=== PATIENT | female | born 1990 | race Caucasian/White ===

== ENCOUNTER 2017-04-11 09:36 | Outpatient (CLI) | payer OTHER ==
--- NOTE | 2017-04-11 11:33 | Non Stress Test Report ---
Non Stress Test Datetime Report Generated by CPN: 04/11/2017 11:32 DEMOGRAPHIC EGA NST: 36.4 INDICATION Indication for Study: Ordered by Provider MONITORING Monitor Explained: Monitor Explained; Test Explained; Patient Verbalized Understanding Time on Monitor: 04/11/2017 09:48 Time off Monitor: 04/11/2017 11:24 Time off Monitor: 04/11/2017 11:24 NST Duration: 96 NST INTERVENTIONS NST Interventions: PO Hydration Physician Notified NST: Dr. Aguila BABY A: [id number] BABY A Movement : Present Contraction Frequency : denies FHR Baseline : 155 Accelerations : 15X15 Decelerations : None Variability : Moderate 6-25bpm NST Review: Meets Criteria for Reactive NST NST Review: Meets Criteria for Reactive NST NST Review and Verified By : Keaton Byrnes [facility] NST Results: Reactive NST Results: Reactive NST REPORT Report Trigger: Send Report
== END 2017-04-11 11:30 | disposition home or self-care (01) ==
LOC: LC 09:36
PROVIDERS: ATTEND Student in an Organized Health Care Education/Training Program
PROC: 4A1HXCZ Monitoring of Products of Conception, Cardiac Rate, External Approach (ICD-10-PCS; principal; 2017-04-11)
DX: Z34.93 Encounter for supervision of normal pregnancy, unspecified, third trimester (principal); Z36 Encounter for antenatal screening of mother; Z3A.36 36 weeks gestation of pregnancy
CPT/HCPCS: 59025

== ENCOUNTER 2017-04-28 17:10 | Inpatient (IN) | payer OTHER ==
[2017-04-28] MEDS ORDERED: DINOPROSTONE 10 MG VAGINAL INSERT.SR PV PRN (17:19)
[2017-04-28] MEDS ORDERED: RINGERS SOLUTION,LACTATED 300 ML IV ONE (17:19)
[2017-04-28] MEDS ORDERED: RINGERS SOLUTION,LACTATED 1,000 ML IV PRN (17:19)
[2017-04-28] MEDS ORDERED: OXYTOCIN/NORMAL SALINE 1,000 ML IV PRN (17:19)
[2017-04-28 17:56] LABS: APPEARANCE,URINE CLOUDY; BILIRUBIN,URINE NEGATIVE (NEGATIVE); GLUCOSE, URINE NEGATIVE (NEGATIVE); KETONES,URINE 80 mg/dL (NEGATIVE); LEUKOCYTE ESTERASE,URINE LARGE (NEGATIVE); NITRITE,URINE NEGATIVE (NEGATIVE); PROTEIN,URINE 100 mg/dL (NEGATIVE); URINE SPECIFIC GRAVITY 1.032; UROBILINOGEN,URINE NEGATIVE mg/dL (<2.0)
[2017-04-28 18:07] LABS: ABSOLUTE LYMPHOCYTES (AUTO) 3.1 10^3/uL (0.5-4.7); ABSOLUTE MONOCYTES (AUTO) 0.8 10^3/uL (0.1-1.4); BASOPHILS % (AUTO) 0.2 % (0-2); EOSINOPHILS % (AUTO) 0.3 % (0-6); HEMATOCRIT 38.5 % (36.0-47.0); HEMOGLOBIN 12.6 g/dL (12.0-15.5); HGB HCT DIFFERENCE -0.7; LYMPHOCYTES % (AUTO) 22.4 % (13-45); MEAN CORPUSCULAR HEMOGLOBIN 30.5 pg (27.0-33.4); MEAN CORPUSCULAR HGB CONC 32.8 g/dL (32.0-36.0); MEAN CORPUSCULAR VOLUME 93 fl (80-97); MONOCYTES % (AUTO) 5.7 % (3-13); RED BLOOD COUNT 4.14 10^6/uL (3.72-5.28); RED CELL DISTRIBUTION WIDTH 13.7 % (11.5-14.0); SEGMENTED NEUTROPHILS % (AUTO) 71.4 % (42-78)
[2017-04-28 18:13] LABS: URINE BARBITURATES SCREEN NEGATIVE; URINE METHADONE SCREEN NEGATIVE; URINE OPIATES LOW NEGATIVE; URINE PHENCYCLIDINE SCREEN NEGATIVE
[2017-04-28] MEDS ORDERED: ZOLPIDEM TARTRATE 5 MG TABLET PO ONE (19:47)
[2017-04-28] MEDS ORDERED: DINOPROSTONE 10 MG VAGINAL INSERT.SR ONE (19:59)
[2017-04-28 20:02] LABS: ALANINE AMINOTRANSFERASE 28 U/L (9-52); ALKALINE PHOSPHATASE 240 U/L (38-126); ANION GAP 11 (5-19); ASPARTATE AMINO TRANSFERASE 30 U/L (14-36); BILIRUBIN,DIRECT 0.3 mg/dL (0.0-0.4); BILIRUBIN,TOTAL 0.5 mg/dL (0.2-1.3); BLOOD UREA NITROGEN 8 mg/dL (7-20); CALCIUM 9.3 mg/dL (8.4-10.2); CARBON DIOXIDE 20 mmol/L (22-30); CHLORIDE 107 mmol/L (98-107); CREATININE RESULT 0.73 mg/dL (0.52-1.25); GLUCOSE 86 mg/dL (75-110); LDH 490 U/L (313-618); POTASSIUM 3.9 mmol/L (3.6-5.0); SODIUM 137.5 mmol/L (137-145); URIC ACID 5.5 mg/dL (2.5-6.2)
[2017-04-28] MEDS ORDERED: ZOLPIDEM TARTRATE 5 MG TABLET ONE (22:54)
[2017-04-29] MEDS ORDERED: PROMETHAZINE HCL INJ 25 MG/1 ML VIAL ONE (05:55)
[2017-04-29] MEDS ORDERED: NALBUPHINE HCL INJ 10 MG/1 ML AMPULE ONE (05:55)
[2017-04-29] MEDS ORDERED: OXYCODONE-ACETAMINOPHEN 5-325 MG TABLET PO ONE ×2 (05:56→20:07)
[2017-04-29] MEDS ORDERED: OXYCODONE-ACETAMINOPHEN 5-325 MG TABLET ONE ×2 (06:01→20:12)
[2017-04-29] MEDS ORDERED: MISOPROSTOL 0.2 MG TABLET ONE ×2 (07:53→21:20)
[2017-04-29] MEDS ORDERED: EPHEDRINE SULFATE INJ 50 MG/1 ML AMPULE ONE (07:53)
[2017-04-29] MEDS ORDERED: FENTANYL/BUPIVACAINE/NS/PF 200 MCG/100 ML RTUINJ EPI ONE (07:54)
[2017-04-29] MEDS ORDERED: OXYTOCIN/NORMAL SALINE 20 UNIT/1,000 ML RTUINJ ONE ×2 (07:54→21:24)
[2017-04-29] MEDS ORDERED: BUPIVACAINE HCL 0.25 % INJ/PF (2.5 MG/1 ML) 30 ML VIAL ONE (07:54)
[2017-04-29] MEDS ORDERED: LIDOCAINE 1% INJ-PF (10 MG/ML) 30 ML SDV ONE (07:54)
[2017-04-29] MEDS ORDERED: OXYTOCIN/NORMAL SALINE 1,000 ML IV PRN ×2 (15:06→20:03)
[2017-04-29] MEDS ORDERED: ACETAMINOPHEN 325 MG TABLET PO ONE (18:28)
[2017-04-29] MEDS ORDERED: ACETAMINOPHEN 325 MG TABLET ONE (18:29)
[2017-04-29] MEDS ORDERED: ACETAMINOPHEN WITH CODEINE #3 TABLET PO PRN ×2 (20:03)
[2017-04-29] MEDS ORDERED: ZOLPIDEM TARTRATE 5 MG TABLET PO PRN (20:03)
[2017-04-29] MEDS ORDERED: DIBUCAINE 1% OINTMENT 28 GM TP PRN (20:03)
[2017-04-29] MEDS ORDERED: DIPH/PERTUSS(ACELL)/TETANUS VAC/PF 0.5 ML SYR (>=10YO) IM PRN (20:03)
[2017-04-29] MEDS ORDERED: MEASLES,MUMPS&RUBELLA VACC/PF 0.5 ML VIAL SUBCUT PRN (20:03)
[2017-04-29] MEDS ORDERED: HYDROCODONE/ACETAMINOPHEN 5-325 MG TABLET PO PRN (20:03)
[2017-04-29] MEDS ORDERED: BENZOCAINE/MENTHOL AEROSOL SPRAY 56 ML TOP PRN (20:03)
--- NOTE | 2017-04-29 20:43 | Delivery Summary ---
Del Sum A-C Datetime Report Generated by CPN: 04/29/2017 20:42 DELIVERY PERSONNEL DELIVERY PERSONNEL: [id number] Delivery Doctor:: Rozina Casas MD Labor and Delivery Nurse:: Mariaelena Unger RNpressroom worker Nurse:: Ivanna Perkins RN Website Admin/MEDICAL RECORD CONSULTANT: Melanie Rojas, ST MATERNAL INFORMATION Delivery Anesthesia: Epidural Medications During Delivery: 0604 Percocet 2 tablets PO 0912 Celexa 20 mg PO Medications After Delivery: Pitocin Bolus-Please Comment; Pitocin Drip 20 Units/1000ml NSS Estimated Blood Loss (ml): 200 Maternal Complications: None LABOR SUMMARY EDC: 05/05/2017 00:00 No. Babies in Womb: 1 Attempted: No Labor Anesthesia: Epidural LABOR INFORMATION Reason for Induction: Gestational Hypertension; Maternal Diabetes Onset of Labor: 04/29/2017 03:59 Complete Dilatation: 04/29/2017 16:45 Cervical Ripening Agents: Cervidil Oxytocin: Augmentation Group B Beta Strep: negative Antibiotics # of Doses: 0 Steroids Given: None Reason Steroids Not Administered: Not Applicable MEMBRANES Membranes Rupture Method: Spontaneous Rupture of Membranes: 04/29/2017 03:47 Length of Rupture (hr): 15.70 Amniotic Fluid Color: Clear Amniotic Fluid Amount: Moderate Amniotic Fluid Odor: Normal STAGES OF LABOR Stage 1 hr: 12 Stage 1 min: 46 Stage 2 hr: 2 Stage 2 min: 44 Stage 3 hr: 0 Stage 3 min: 7 Total Time in Labor hr: 15 Total Time in Labor min: 37 VAGINAL DELIVERY Episiotomy: None Laceration Extension: Second Degree Laceration Type: Periurethral Laceration Repair: Yes Laceration Repair Note: 2-0 chromic repair of clitoral arana with interupted stitch x 2. repair of vaginal lac in normal fashion Sponge Count Correct: N/A Sharps Count Correct: Yes CSECTION DELIVERY Primary Indication: N/A Secondary Indication: N/A CSection Incidence: N/A Labor: N/A Elective: N/A CSection Incision: N/A BABY A INFORMATION Delivery Date/Time: 04/29/2017 19:29 Method of Delivery: Vaginal Born in Route : No : N/A Forceps: N/A Vacuum Extraction: N/A Shoulder Dystocia : No PRESENTATION/POSITION BABY A Presentation: Cephalic Cephalic Presentation: Vertex Breech Presentation: N/A PLACENTA INFORMATION BABY A Placenta Delivery Time : 04/29/2017 19:36 Placenta Method of Delivery: Spontaneous Placenta Status: Delivered SCORES BABY A Heart Rate 1 min: >100 bpm Resp Effort 1 min: Slow, Irregular Reflex Irritability 1 min: Cough or Sneeze or Pulls Away Muscle Tone 1 min: Active Motion Color 1 min: Body Ariton, Extremities Blue Resuscitation Effort 1 min: Tactile Stimulation SCORE 1 MIN: 8 Heart Rate 5 min: >100 bpm Resp Effort 5 min: Good Cry Reflex Irritability 5 min: Cough or Sneeze or Pulls Away Muscle Tone 5 min: Active Motion Color 5 min: Body Ariton, Extremities Blue SCORE 5 MIN: 9 INFANT INFORMATION BABY A Gestational Age at Delivery: 39.1 Gestational Status: Full Term- 39- 40.6 Weeks Outcome : Liveborn Condition : Stable Sex: Female IDENTIFICATION BABY A Verification Date/Time: 04/29/2017 19:37 ID Band Number: [id number] Mother's Name Verified: Yes RN Verifying : J, RN and S.Lattibeaudeir, RN WEIGHT/LENGTH BABY A Birthweight (gm): 3260 Weight (lb): 7 Infant Weight (oz): 3 Length (in): 19.00 Infant Length (cm): 48.26 CORD INFORMATION BABY A No. Cord Vessels: 3 Nuchal Cord : N/A Cord Blood Taken: Yes-For Eval (Mom's Blood Type - or O+) Infant Suction: Mouth; Nose ASSESSMENT BABY A Complications: Extended Tachycardia; Polyhydramnios Physical Findings at Delivery: Molding of the Head Respirations: Appears Normal Skin to Skin: No Cmm Operator/ALS Called : No Care By: Je Perkins RN _ Tosha Gregorio RN Transferred To: [facility] BABY B INFORMATION : N/A SIGNATURES Signature: with User ID: [email or web address]
--- NOTE | 2017-04-29 23:46 | Admission Physical ---
Datetime Report Generated by CPN: 04/29/2017 23:45 CURRENT ADMISSION Chief Complaint: Scheduled Induction of Labor Indication for Induction: Gestational HTN; Maternal Diabetes Admit Plan: Admit to Unit; Initiate Labor Induction Protocol ALLERGIES Medication Allergies: Yes Medication Allergies: Penicillins (04/11/2017) Medication Allergies: Penicillins (11/19/2015) Latex: No Latex Allergies OBSTETRICAL HISTORY EDC: 05/05/2017 00:00 : 2 Para: 0 Term: 0 : 0 SAB: 1 IAB: 0 Ectopic: 0 Livin Cesareans: 0 VBACs: 0 Multiple Births: 0 Gestational Diabetes: Yes Rh Sensitization: No Incompetent Cervix: No ROM: No Infertility: No ART Treatment: No Uterine Anomaly: No IUGR: No Hx Previous C/S: No Macrosomia: No Hx Loss/Stillborn: No PIH: Yes Hx : No Placenta Previa/Abruption: No Depression/PP Depression: Yes PTL/PROM: No Post Hemorrhage: No Current Procedures: Ultrasound; NST Obstetrical History Comments: G1-molar 11/20/2015 G2-current GDMA2 (on Glyburide) GHTN polyhyrdramnios conceived with IUI (Annotations: Data stored by N on behalf of user) SEE RECORDS Alcohol: No Marijuana : No Cocaine: No Other Illicit Drugs: No Cigarettes: Never Smoker. 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: No Heart Disease: No Hosp/Surgery: Yes Autoimmune Disorder: No Anesthetic Complications: No Kidney Disease: No Abnormal Pap Smear: Yes Neuro/Epilepsy: No Psychiatric Disorders: No Other Medical Diseases: No Hepatitis/Liver Disease: No Significant Family History: No Varicosities/Phlebitis: No Trauma/Violence : No Thyroid Dysfunction: No Medical History Comments: history of depression and anxiety-celexa 20mg QD started at 29 weeks, GDMA2-gliburide INFECTIOUS HISTORY Gonorrhea: No Genital Herpes: No Chlamydia: No Tuberculosis: No Syphilis: No Hepatitis: No HIV/AIDS Exposure: No Rash or Viral Illness: No HPV: Yes Infectious History Comments: HPV 2007 PHYSICAL EXAM General: Normal HEENT: Normal Neurologic: Normal Thyroid: Deferred Heart: Normal Lungs: Normal Breast: Deferred Back: Normal Abdomen: Normal Genitourinary Exam: Normal Extremities: Normal DTRs: Normal Pelvic Type: Adequate Vital Signs: Reviewed; Within Normal Limits VAGINAL EXAM Dilatation: 2 Effacement: 70 Station: -2 MEMBRANES Membranes: Intact FETUS A EGA: 39.1 Monitoring: External US FHR- Baseline: 140 Variability: Moderate 6-25bpm Accelerations: 15X15 Decelerations: None FHR Category: Category I PLANS FOR LABOR AND DELIVERY Labor and Delivery: None Pain Management: Epidural Feeding Preference: Formula Benefit of Breast Feed Discussed: Yes Circumcision: N/A INFORMED CONSENT Signature: with User ID: [email or web address]
[2017-04-30 07:55] LABS: HEMATOCRIT 29.2 % (36.0-47.0); HGB HCT DIFFERENCE -0.4; MEAN CORPUSCULAR HEMOGLOBIN 30.3 pg (27.0-33.4); MEAN CORPUSCULAR HGB CONC 32.8 g/dL (32.0-36.0); MEAN CORPUSCULAR VOLUME 92 fl (80-97); RED BLOOD COUNT 3.17 10^6/uL (3.72-5.28); RED CELL DISTRIBUTION WIDTH 13.4 % (11.5-14.0); WHITE BLOOD COUNT 22.8 10^3/uL (4.0-10.5)
[2017-04-30 07:56] LABS: HEMOGLOBIN 9.6 g/dL (12.0-15.5)
[2017-04-30] MEDS: IBUPROFEN 800 MG TABLET PO SCH ×3 (09:23→21:02)
--- NOTE | 2017-04-30 09:24 | PDOC PROGRESS REPORT ---
Subjective-OB Subjective: Post Delivery Day: 1 26 year old. Denies any needs at this time, states lochia is stable, pain well controlled, voiding without difficulty, bonding with baby well. Physical Exam (OB) Vital Signs: Temp Pulse Resp BP Pulse Ox 98.5 F 78 16 121/76 99 04/30/17 07:23 04/30/17 07:23 04/30/17 07:23 04/30/17 07:23 04/30/17 07:23 Intake & Output 04/29/17 04/30/17 05/01/17 06:59 06:59 06:59 Weight 90.75 kg - Lochia Lochia Amount: Scant < 10 ml Lochia Color: Rubra/Red - Abdomen Description: Tender, Soft Hernia Present: No Fundal Description: Firm, Midline Fundal Height: u/u - u/2 Objective-Diagnostic Laboratory: 04/30/17 06:52 04/28/17 17:45 04/30/17 06:52 WBC 22.8 H RBC 3.17 L Hgb 9.6 L D Hct 29.2 L MCV 92 MCH 30.3 MCHC 32.8 RDW 13.4 Plt Count 198 Assessment and Plan(PN) - Assessment and Plan (1) History of molar in first trimester, antepartum Is this a current diagnosis for this admission?: YesPlan: placenta to pathology (2) Vaginal delivery Is this a current diagnosis for this admission?: YesPlan: routine pp care (3) Acute blood loss anemia Is this a current diagnosis for this admission?: YesPlan: ferrous sulfate increase dietary iron - Time Spent with Patient Time with patient: Less than 15 minutes Critical Time spent with patient: Less than 15 minutes Medications reviewed and adjusted accordingly: Yes - Disposition Anticipated Discharge: Home Within: within 24 hours
[2017-04-30] MEDS: PRENATAL VITAMIN W-O CA NO5/FE FUMARATE/FA CAPSULE PO SCH (09:35)
[2017-04-30] MEDS: SENNOSIDES/DOCUSATE 8.6-50 MG 1 EACH TABLET PO SCH (09:35)
[2017-04-30] MEDS: DOCUSATE SODIUM 100 MG CAPSULE PO SCH ×2 (09:36→18:04)
[2017-04-30] MEDS: FERROUS SULFATE 325 MG TABLET PO SCH ×2 (09:36→18:04)
[2017-05-01] MEDS: IBUPROFEN 800 MG TABLET PO SCH (05:05)
[2017-05-01 06:58] LABS: ABSOLUTE EOSINOPHILS # (AUTO) 0.2 10^3/uL (0.0-0.6); ABSOLUTE LYMPHOCYTES (AUTO) 3.5 10^3/uL (0.5-4.7); ABSOLUTE NEUT (AUTO) 12.3 10^3/uL (1.7-8.2); BASOPHILS % (AUTO) 0.3 % (0-2); EOSINOPHILS % (AUTO) 1.2 % (0-6); HEMATOCRIT 29.1 % (36.0-47.0); HEMOGLOBIN 9.8 g/dL (12.0-15.5); HGB HCT DIFFERENCE 0.3; LYMPHOCYTES % (AUTO) 20.4 % (13-45); MEAN CORPUSCULAR HEMOGLOBIN 30.7 pg (27.0-33.4); MEAN CORPUSCULAR HGB CONC 33.7 g/dL (32.0-36.0); MEAN CORPUSCULAR VOLUME 91 fl (80-97); MONOCYTES % (AUTO) 5.7 % (3-13); RED BLOOD COUNT 3.19 10^6/uL (3.72-5.28); RED CELL DISTRIBUTION WIDTH 13.7 % (11.5-14.0); SEGMENTED NEUTROPHILS % (AUTO) 72.4 % (42-78)
--- NOTE | 2017-05-01 08:50 | PDOC DISCHARGE SUMMARY ---
Final Diagnosis Discharge Date: 05/01/17 - Final Diagnosis (1) History of molar in first trimester, antepartum Is this a current diagnosis for this admission?: Yes (2) Vaginal delivery Is this a current diagnosis for this admission?: Yes (3) Acute blood loss anemia Is this a current diagnosis for this admission?: Yes Discharge Data - Discharge Medication Home Medications: Citalopram Hydrobromide [Celexa] 1 tab PO DAILY 04/11/17 [id number]/Iron Fumarate/FA/Dss [ 19 Tablet] 1 tab PO DAILY 04/11/17 Docusate Sodium [Colace 100 mg Capsule] 100 mg PO BID #60 capsule 05/01/17 Ferrous Sulfate [Feosol 325 mg Tablet] 325 mg PO BID #60 tablet 05/01/17 Ibuprofen [Motrin 800 mg Tablet] 800 mg PO Q8 #60 tablet 05/01/17 Gestational Age: 39.1 Reason(s) for Admission: Induction of Labor, Gestional Diabetes Procedures: NST Intrapartum Procedure(s): Spontaneous Vaginal Delivery Complication(s): Laceration-Perineal Laceration-Degree: 2nd - [place] Data Baby 1 Female at 1 minute: 8 at 5 minutes: 9 Weight: 3260 kg Home with Mother: Yes Complications: No - Diagnosis Test Laboratory: Temp Pulse Resp BP Pulse Ox 98.0 F 81 16 124/79 97 04/30/17 19:45 04/30/17 19:45 04/30/17 19:45 04/30/17 19:45 04/30/17 19:45 04/28/17 04/28/17 04/30/17 17:27 17:45 06:52 RBC 4.14 3.17 L Hgb 12.6 9.6 L D Hct 38.5 29.2 L Urine Opiates Screen NEGATIVE 05/01/17 06:52 RBC 3.19 L Hgb 9.8 L Hct 29.1 L Urine Opiates Screen - Discharge information/Instructions Discharge Activity: Activity As Tolerated, Pelvic Rest, No tub bath Discharge Diet: Regular Disposition: HOME, SELF-CARE Follow up with: [facility] in: 4, Weeks
[2017-05-01 09:24] VITALS: BP 130/87
[2017-05-01] MEDS: FERROUS SULFATE 325 MG TABLET PO SCH (10:03)
[2017-05-01] MEDS: PRENATAL VITAMIN W-O CA NO5/FE FUMARATE/FA CAPSULE PO SCH (10:04)
[2017-05-01] MEDS: DOCUSATE SODIUM 100 MG CAPSULE PO SCH (10:04)
[2017-05-01] MEDS: SENNOSIDES/DOCUSATE 8.6-50 MG 1 EACH TABLET PO SCH (10:04)
== END 2017-05-01 12:20 | disposition home or self-care (01) | DRG 775 ==
LOC: LR 17:10 → 2S 04-29 23:11 → EDSTATUS 05-27 14:21
PROVIDERS: ADMIT Obstetrics & Gynecology; ATTEND Obstetrics & Gynecology
PROC: 4A1HXCZ Monitoring of Products of Conception, Cardiac Rate, External Approach (ICD-10-PCS; 2017-04-28)
PROC: 10E0XZZ Delivery of Products of Conception, External Approach (ICD-10-PCS; principal; 2017-04-29)
PROC: 0KQM0ZZ Repair Perineum Muscle, Open Approach (ICD-10-PCS; 2017-04-29)
PROC: 0UQMXZZ Repair Vulva, External Approach (ICD-10-PCS; 2017-04-29)
PROC: 3E0234Z Introduction of Serum, Toxoid and Vaccine into Muscle, Percutaneous Approach (ICD-10-PCS; 2017-05-01)
DX: O13.3 Gestational [pregnancy-induced] hypertension without significant proteinuria, third trimester (principal); D62 Acute posthemorrhagic anemia; O70.1 Second degree perineal laceration during delivery; O71.82 Other specified trauma to perineum and vulva; O99.02 Anemia complicating childbirth; O24.425 Gestational diabetes mellitus in childbirth, controlled by oral hypoglycemic drugs; O40.3XX0 Polyhydramnios, third trimester, not applicable or unspecified; O99.344 Other mental disorders complicating childbirth; F32.9 Major depressive disorder, single episode, unspecified; F41.9 Anxiety disorder, unspecified; Z37.0 Single live birth; Z23 Encounter for immunization; Z3A.39 39 weeks gestation of pregnancy; Z88.0 Allergy status to penicillin
CPT/HCPCS: 36415; 80053; 80307; 81005; 83615; 84550; 85025; 85027; 86592; 86850; 86900; 86901; 88307; 90707; 94760; J2300; J2550; J2590; J3490

== ENCOUNTER 2018-06-03 09:58 | Outpatient (CLI) | payer OTHER ==
--- NOTE | 2018-06-03 10:51 | Non Stress Test Report ---
Non Stress Test Datetime Report Generated by CPN: 06/03/2018 10:51 DEMOGRAPHIC EGA NST: 33.1 INDICATION Indication for Study: Other Indication for Study (NST) Other: repeat NST at office for tachycardia VITAL SIGNS Temperature - NST: 99.4 Pulse - NST: 133 RESP - NST: 14 NBPSYS NST: 111 NBPDIA NST: 68 MONITORING Monitor Explained: Monitor Explained; Test Explained; Patient Verbalized Understanding Time on Monitor: 06/03/2018 10:10 Time off Monitor: 06/03/2018 10:50 Time off Monitor: 06/03/2018 10:47 NST Duration: 40 NST INTERVENTIONS NST Interventions: PO Hydration; IV Fluids Physician Notified NST: Dr Augusto BABY A: [id number] BABY A Movement : Present Contraction Frequency : 0 FHR Baseline : 160 Accelerations : 15X15 Decelerations : None Variability : Moderate 6-25bpm NST Review: Meets Criteria for Reactive NST NST Review and Verified By : D Bellavance RN NST Results: Reactive NST REPORT Report Trigger: Send Report
[2018-06-03 13:24] LABS: APPEARANCE,URINE SLIGHTLY-CLOUDY; BILIRUBIN,URINE NEGATIVE (NEGATIVE); COLOR,URINE YELLOW; GLUCOSE, URINE 50 mg/dL (NEGATIVE); KETONES,URINE NEGATIVE (NEGATIVE); LEUKOCYTE ESTERASE,URINE LARGE (NEGATIVE); NITRITE,URINE NEGATIVE (NEGATIVE); PROTEIN,URINE NEGATIVE (NEGATIVE); UROBILINOGEN,URINE NEGATIVE mg/dL (<2.0)
--- NOTE | 2018-06-03 13:29 | RADIOLOGY REPORT (SQ) ---
EXAM DESCRIPTION: U/S PROFILE W/O STRESS COMPLETED DATE/TIME: 06/03/2018 12:52 pm REASON FOR STUDY: tachycardia in the office COMPARISON: None. TECHNIQUE: Limited ellis-scale realtime and static images of the fetus to measure specified parameter s. LIMITATIONS: None. FINDINGS: HEART RATE: 147 to 150 Beats per minute. SUDHEER: 12.4 cm. BREATHING MOVEMENT: 0 points. MOVEMENT: 2 points. POSTURE AND TONE: 2 points. QUALITATIVE SUDHEER: 2 points. OTHER: No other significant finding. IMPRESSION: BIOPHYSICAL PROFILE: 04/04. Trimester of : Third - 28 weeks to delivery COMMENT: BREATHING MOVEMENTS: 2 POINTS: PRESENT 0 POINTS: ABSENT MOTION: 2 POINTS: PRESENT 0 POINTS: ABSENT TONE: 2 POINTS: PRESENT 0 POINTS: ABSENT AMNIOTIC FLUID VOLUME: 2 POINTS: LARGEST POCKET GREATER THAN 2 CM DEPTH. 0 POINTS: NO POCKET OF 2 CM. TECHNICAL DOCUMENTATION: JOB ID: [id number] [employer]- All Rights Reserved Reading location - IP/workstation name: [email or web address]
[2018-06-03 13:50] LABS: URINE AMPHETAMINES SCREEN NEGATIVE; URINE BARBITURATES SCREEN NEGATIVE; URINE BENZODIAZEPINES SCREEN NEGATIVE; URINE COCAINE SCREEN NEGATIVE; URINE MARIJUANA (THC) SCREEN NEGATIVE; URINE METHADONE SCREEN NEGATIVE; URINE PHENCYCLIDINE SCREEN NEGATIVE
== END 2018-06-03 13:26 | disposition home or self-care (01) ==
LOC: LC 09:58
PROVIDERS: ATTEND Obstetrics & Gynecology
PROC: 4A1HXCZ Monitoring of Products of Conception, Cardiac Rate, External Approach (ICD-10-PCS; principal; 2018-06-03)
DX: O36.8330 Maternal care for abnormalities of the fetal heart rate or rhythm, third trimester, not applicable or unspecified (principal); Z3A.33 33 weeks gestation of pregnancy
CPT/HCPCS: 76819; 80307; 81001

== ENCOUNTER 2018-06-11 10:41 | Outpatient (CLI) | payer OTHER ==
--- NOTE | 2018-06-11 13:06 | Non Stress Test Report ---
Non Stress Test Datetime Report Generated by CPN: 06/11/2018 13:06 DEMOGRAPHIC EGA NST: 34.2 INDICATION Indication for Study: Ordered by Provider; Other Indication for Study (NST) Other: Repeat NST MONITORING Monitor Explained: Monitor Explained; Test Explained; Patient Verbalized Understanding Time on Monitor: 06/11/2018 11:34 Time off Monitor: 06/11/2018 12:15 NST Duration: 41 NST INTERVENTIONS NST Interventions: PO Hydration; Reposition Patient Physician Notified NST: Margot Peck, CNM BABY A: [id number] BABY A Movement : Present Contraction Frequency : none FHR Baseline : 145 Accelerations : 15X15 Decelerations : None Variability : Moderate 6-25bpm NST Review: Meets Criteria for Reactive NST NST Review and Verified By : TARIQ Ochoa Results: Reactive NST REPORT Report Trigger: Send Report
== END 2018-06-11 12:21 | disposition home or self-care (01) ==
LOC: LC 10:41
PROVIDERS: ATTEND Obstetrics & Gynecology
PROC: 4A1HXCZ Monitoring of Products of Conception, Cardiac Rate, External Approach (ICD-10-PCS; principal; 2018-06-11)
DX: Z34.93 Encounter for supervision of normal pregnancy, unspecified, third trimester (principal)
CPT/HCPCS: 59025

== ENCOUNTER 2018-06-25 15:34 | Outpatient (CLI) | payer OTHER | END 2018-06-25 17:05 | disposition home or self-care (01) | LOC: LC 15:34 | PROVIDERS: ATTEND Obstetrics & Gynecology | PROC: 4A1HXCZ Monitoring of Products of Conception, Cardiac Rate, External Approach (ICD-10-PCS; principal; 2018-06-25) | DX: O40.3XX0 Polyhydramnios, third trimester, not applicable or unspecified (principal); O24.419 Gestational diabetes mellitus in pregnancy, unspecified control; Z3A.36 36 weeks gestation of pregnancy | CPT/HCPCS: 59025 ==

== ENCOUNTER 2019-12-22 15:13 | Outpatient (CLI) | payer OTHER ==
[2019-12-22 16:02] LABS: HEMOGLOBIN 11.4 g/dL (12.0-15.5); MEAN CORPUSCULAR HEMOGLOBIN 28.7 pg (27.0-33.4); MEAN CORPUSCULAR HGB CONC 33.5 g/dL (32.0-36.0); MEAN CORPUSCULAR VOLUME 86 fl (80-97); PLATELET COUNT 448 10^3/uL (150-450); RED BLOOD COUNT 3.95 10^6/uL (3.72-5.28); RED CELL DISTRIBUTION WIDTH 13.6 % (11.5-14.0); WHITE BLOOD COUNT 17.9 10^3/uL (4.0-10.5)
[2019-12-22 16:16] LABS: ALBUMIN 3.1 g/dL (3.5-5.0); ALKALINE PHOSPHATASE 165 U/L (38-126); ANION GAP 8 (5-19); ASPARTATE AMINO TRANSFERASE 23 U/L (14-36); BILIRUBIN,DIRECT 0.3 mg/dL (0.0-0.4); BILIRUBIN,TOTAL 0.3 mg/dL (0.2-1.3); BLOOD UREA NITROGEN 4 mg/dL (7-20); CALCIUM 8.8 mg/dL (8.4-10.2); CARBON DIOXIDE 23 mmol/L (22-30); CHLORIDE 106 mmol/L (98-107); POTASSIUM 4.2 mmol/L (3.6-5.0); TOTAL PROTEIN 6.4 g/dL (6.3-8.2); URIC ACID 3.3 mg/dL (2.5-6.2)
[2019-12-22 16:21] LABS: GLUCOSE 67 mg/dL (75-110)
[2019-12-22 16:56] LABS: APPEARANCE,URINE CLOUDY; BILIRUBIN,URINE NEGATIVE (NEGATIVE); COLOR,URINE YELLOW; GLUCOSE, URINE NEGATIVE (NEGATIVE); KETONES,URINE 20 mg/dL (NEGATIVE); LEUKOCYTE ESTERASE,URINE LARGE (NEGATIVE); NITRITE,URINE NEGATIVE (NEGATIVE); PROTEIN,URINE 30 mg/dL (NEGATIVE); URINE SPECIFIC GRAVITY 1.015; UROBILINOGEN,URINE NEGATIVE mg/dL (<2.0)
[2019-12-22 17:01] LABS: URINE AMPHETAMINES SCREEN NEGATIVE; URINE BARBITURATES SCREEN NEGATIVE; URINE BENZODIAZEPINES SCREEN NEGATIVE; URINE COCAINE SCREEN NEGATIVE; URINE MARIJUANA (THC) SCREEN NEGATIVE; URINE METHADONE SCREEN NEGATIVE; URINE PHENCYCLIDINE SCREEN NEGATIVE
[2019-12-22 17:54] LABS: UR PRO/CREAT RATIO RESULT 0.2 mg/mg (0.0-0.2); URINE CREATININE 74.8 mg/dL (16-327); URINE PROTEIN 13.9 mg/dL (<12)
== END 2019-12-22 18:12 | disposition home or self-care (01) ==
LOC: LC 15:13
PROVIDERS: ATTEND Student in an Organized Health Care Education/Training Program
DX: O26.893 Other specified pregnancy related conditions, third trimester (principal); Z3A.32 32 weeks gestation of pregnancy; R51 Headache
CPT/HCPCS: 36415; 59025; 80053; 80307; 81001; 82570; 84156; 84550; 85027

== ENCOUNTER 2019-12-24 10:23 | Outpatient (CLI) | payer OTHER ==
--- NOTE | 2019-12-24 10:37 | Non Stress Test Report ---
Non Stress Test Datetime Report Generated by CPN: 12/24/2019 10:37 DEMOGRAPHIC EGA NST: 32.4 INDICATION Indication for Study (NST) Other: Labor Check IUP 32.4 MONITORING Monitor Explained: Monitor Explained; Test Explained; Patient Verbalized Understanding Time on Monitor: 12/22/2019 15:55 Time off Monitor: 12/22/2019 16:15 NST Duration: 20 NST INTERVENTIONS NST Interventions: None Physician Notified NST: N. Cobian CNM (Annotations: Data stored by [facility] on behalf of user) BABY A: [id number] BABY A Movement : Present Contraction Frequency : none FHR Baseline : 150 Accelerations : 15X15 Decelerations : None Variability : Moderate 6-25bpm NST Review: Meets Criteria for Reactive NST NST Review and Verified By : Criselda Valdez RN NST Results: Reactive NST REPORT Report Trigger: Send Report
--- NOTE | 2019-12-24 11:24 | Non Stress Test Report ---
Non Stress Test Datetime Report Generated by CPN: 12/24/2019 11:23 DEMOGRAPHIC Test Number: 2 EGA NST: 32.6 INDICATION Indication for Study (NST) Other: Repeat NST due to questionable decel in office VITAL SIGNS Temperature - NST: 99.3 Pulse - NST: 114 RESP - NST: 18 NBPSYS NST: 137 NBPDIA NST: 77 MONITORING Monitor Explained: Monitor Explained; Test Explained; Patient Verbalized Understanding Time on Monitor: 12/24/2019 10:41 Time off Monitor: 12/24/2019 11:20 NST Duration: 39 NST INTERVENTIONS NST Interventions: PO Hydration Physician Notified NST: K Peck CNM BABY A Contraction Frequency : 0 FHR Baseline : 140 Accelerations : 15X15 Decelerations : None Variability : Moderate 6-25bpm NST Review: Meets Criteria for Reactive NST NST Review and Verified By : C Courtney RN NST Results: Reactive NST COMMENTS NST Comments: CNM ON unit reviewing FHT strip NST REPORT Report Trigger: Send Report
== END 2019-12-24 11:24 | disposition home or self-care (01) ==
LOC: LC 10:23
PROVIDERS: ATTEND Obstetrics & Gynecology Gynecology
DX: O24.419 Gestational diabetes mellitus in pregnancy, unspecified control (principal); Z3A.32 32 weeks gestation of pregnancy

== ENCOUNTER 2019-12-27 10:34 | Outpatient (CLI) | payer OTHER ==
[2019-12-27 11:08] LABS: APPEARANCE,URINE SLIGHTLY-CLOUDY; BILIRUBIN,URINE NEGATIVE (NEGATIVE); COLOR,URINE YELLOW; GLUCOSE, URINE 150 mg/dL (NEGATIVE); KETONES,URINE NEGATIVE (NEGATIVE); LEUKOCYTE ESTERASE,URINE LARGE (NEGATIVE); NITRITE,URINE NEGATIVE (NEGATIVE); PROTEIN,URINE NEGATIVE (NEGATIVE); URINE SPECIFIC GRAVITY 1.006; UROBILINOGEN,URINE NEGATIVE mg/dL (<2.0)
[2019-12-27 11:20] LABS: URINE AMPHETAMINES SCREEN NEGATIVE; URINE BARBITURATES SCREEN NEGATIVE; URINE BENZODIAZEPINES SCREEN NEGATIVE; URINE COCAINE SCREEN NEGATIVE; URINE MARIJUANA (THC) SCREEN NEGATIVE; URINE METHADONE SCREEN NEGATIVE; URINE PHENCYCLIDINE SCREEN NEGATIVE
[2019-12-27] MEDS ORDERED: BUTALB/ACETAMINOPHEN/CAFFEINE 1 TAB EACH PO ONE (11:33)
[2019-12-27] MEDS ORDERED: BUTALB/ACETAMINOPHEN/CAFFEINE 1 TAB EACH ONE (11:42)
[2019-12-27] MEDS: RINGERS SOLUTION,LACTATED 1,000 ML IV PRN ×2 (11:50→12:46)
--- NOTE | 2019-12-27 13:37 | Non Stress Test Report ---
Non Stress Test Datetime Report Generated by CPN: 12/27/2019 13:37 DEMOGRAPHIC EGA NST: 33.2 INDICATION Indication for Study (NST) Other: INMAN and IUP at 33.2 MONITORING Monitor Explained: Monitor Explained; Test Explained; Patient Verbalized Understanding Time on Monitor: 12/27/2019 11:57 Time off Monitor: 12/27/2019 12:17 NST Duration: 20 NST INTERVENTIONS NST Interventions: None Physician Notified NST: Dr. Aguusto BABY A: [id number] BABY A Movement : Present Contraction Frequency : None FHR Baseline : 135 Accelerations : 15X15 Decelerations : None Variability : Moderate 6-25bpm NST Review: Meets Criteria for Reactive NST NST Review and Verified By : SAutry NST Results: Reactive NST REPORT Report Trigger: Send Report
== END 2019-12-27 13:23 | disposition home or self-care (01) ==
LOC: LC 10:34
PROVIDERS: ATTEND Obstetrics & Gynecology
PROC: 4A1HXCZ Monitoring of Products of Conception, Cardiac Rate, External Approach (ICD-10-PCS; principal; 2019-12-27)
DX: O99.283 Endocrine, nutritional and metabolic diseases complicating pregnancy, third trimester (principal); E86.0 Dehydration; Z3A.22 22 weeks gestation of pregnancy
CPT/HCPCS: 59025; 94760; 81001; 80307; J3490

== ENCOUNTER 2020-01-04 17:47 | Outpatient (CLI) | payer OTHER ==
[2020-01-04 18:21] LABS: APPEARANCE,URINE CLEAR; BILIRUBIN,URINE NEGATIVE (NEGATIVE); COLOR,URINE YELLOW; GLUCOSE, URINE 50 mg/dL (NEGATIVE); KETONES,URINE 80 mg/dL (NEGATIVE); LEUKOCYTE ESTERASE,URINE MODERATE (NEGATIVE); NITRITE,URINE NEGATIVE (NEGATIVE); PROTEIN,URINE 100 mg/dL (NEGATIVE); URINE SPECIFIC GRAVITY 1.023; UROBILINOGEN,URINE NEGATIVE mg/dL (<2.0)
[2020-01-04 18:30] LABS: URINE AMPHETAMINES SCREEN NEGATIVE; URINE BENZODIAZEPINES SCREEN NEGATIVE; URINE COCAINE SCREEN NEGATIVE; URINE MARIJUANA (THC) SCREEN NEGATIVE; URINE METHADONE SCREEN NEGATIVE; URINE PHENCYCLIDINE SCREEN NEGATIVE
[2020-01-04 18:37] LABS: URINE BARBITURATES SCREEN UNCONFIRMED POSITIVE
[2020-01-04] MEDS ORDERED: ONDANSETRON HCL INJ/PF 4 MG/2 ML SDV ONE (19:06)
[2020-01-04] MEDS ORDERED: RINGERS SOLUTION,LACTATED 1,000 ML IV PRN ×2 (19:07→19:08)
[2020-01-04] MEDS ORDERED: ACETAMINOPHEN 325 MG TABLET ONE (19:26)
[2020-01-04] MEDS ORDERED: ONDANSETRON HCL INJ/PF 4 MG/2 ML SDV IV ONE (19:30)
[2020-01-04 20:11] LABS: A TYPE INFLUENZA AG NEGATIVE (NEGATIVE); B INFLUENZA AG NEGATIVE (NEGATIVE)
[2020-01-04] MEDS ORDERED: ACETAMINOPHEN 325 MG TABLET PO ONE (20:30)
--- NOTE | 2020-01-04 20:43 | Non Stress Test Report ---
Non Stress Test Datetime Report Generated by CPN: 01/04/2020 20:43 DEMOGRAPHIC EGA NST: 34.3 INDICATION Indication for Study (NST) Other: lc nausea vomitting diarrhea MONITORING Monitor Explained: Monitor Explained; Test Explained; Patient Verbalized Understanding Time on Monitor: 01/04/2020 19:00 Time off Monitor: 01/04/2020 20:10 NST Duration: 70 NST INTERVENTIONS NST Interventions: PO Hydration; Reposition Patient Physician Notified NST: Dr Augusto BABY A: [id number] BABY A Movement : Present Contraction Frequency : irreg FHR Baseline : 165 Accelerations : 15X15 Decelerations : None Variability : Moderate 6-25bpm NST Review: Meets Criteria for Reactive NST NST Review and Verified By : Cortez Marquez RN NST Results: Reactive NST COMMENTS NST Comments: aware of increased baseline due to slight fever NST REPORT Report Trigger: Send Report
== END 2020-01-04 20:35 | disposition home or self-care (01) ==
LOC: LC 17:47
PROVIDERS: ATTEND Obstetrics & Gynecology
PROC: 4A1HXCZ Monitoring of Products of Conception, Cardiac Rate, External Approach (ICD-10-PCS; principal; 2020-01-04)
DX: O21.2 Late vomiting of pregnancy (principal); R19.7 Diarrhea, unspecified; R05 Cough; Z3A.34 34 weeks gestation of pregnancy
CPT/HCPCS: 59025; 81001; 80307; 87804; J2405

== ENCOUNTER 2020-01-07 10:12 | Outpatient (CLI) | payer OTHER ==
--- NOTE | 2020-01-07 11:02 | Non Stress Test Report ---
Non Stress Test Datetime Report Generated by CPN: 01/07/2020 11:02 DEMOGRAPHIC EGA NST: 34.6 INDICATION Indication for Study (NST) Other: provider orders for repeat NST VITAL SIGNS Temperature - NST: 98.5 Pulse - NST: 118 RESP - NST: 18 NBPSYS NST: 121 NBPDIA NST: 76 MONITORING Monitor Explained: Monitor Explained; Test Explained; Patient Verbalized Understanding Time on Monitor: 01/07/2020 10:30 Time off Monitor: 01/07/2020 10:53 NST Duration: 23 NST INTERVENTIONS NST Interventions: PO Hydration Physician Notified NST: JCox, CNM BABY A: [id number] BABY A Movement : Present Contraction Frequency : none FHR Baseline : 150 Accelerations : 15X15 Decelerations : None Variability : Moderate 6-25bpm NST Review: Meets Criteria for Reactive NST NST Review and Verified By : C Courtney RN NST Results: Reactive NST COMMENTS NST Comments: CNM on unit reviewing FHT strip NST REPORT Report Trigger: Send Report
== END 2020-01-07 11:02 | disposition home or self-care (01) ==
LOC: LC 10:12
PROVIDERS: ATTEND Obstetrics & Gynecology Gynecology
DX: Z36.89 Encounter for other specified antenatal screening (principal); Z3A.34 34 weeks gestation of pregnancy
CPT/HCPCS: 59025

== ENCOUNTER 2020-01-11 14:45 | Outpatient (CLI) | payer OTHER ==
[2020-01-11 15:21] LABS: APPEARANCE,URINE SLIGHTLY-CLOUDY; BILIRUBIN,URINE NEGATIVE (NEGATIVE); COLOR,URINE YELLOW; GLUCOSE, URINE NEGATIVE (NEGATIVE); KETONES,URINE 20 mg/dL (NEGATIVE); LEUKOCYTE ESTERASE,URINE LARGE (NEGATIVE); NITRITE,URINE NEGATIVE (NEGATIVE); PROTEIN,URINE NEGATIVE (NEGATIVE); UROBILINOGEN,URINE NEGATIVE mg/dL (<2.0)
[2020-01-11 15:36] LABS: URINE AMPHETAMINES SCREEN NEGATIVE; URINE BENZODIAZEPINES SCREEN NEGATIVE; URINE COCAINE SCREEN NEGATIVE; URINE MARIJUANA (THC) SCREEN NEGATIVE; URINE METHADONE SCREEN NEGATIVE; URINE PHENCYCLIDINE SCREEN NEGATIVE
[2020-01-11 15:42] LABS: UR PRO/CREAT RATIO RESULT 0.2 mg/mg (0.0-0.2); URINE CREATININE 86.3 mg/dL (16-327); URINE PROTEIN 17.2 mg/dL (<12)
[2020-01-11 15:43] LABS: URINE BARBITURATES SCREEN UNCONFIRMED POSITIVE
[2020-01-11 15:53] LABS: HEMATOCRIT 32.2 % (36.0-47.0); HEMOGLOBIN 10.6 g/dL (12.0-15.5); MEAN CORPUSCULAR HEMOGLOBIN 27.4 pg (27.0-33.4); MEAN CORPUSCULAR HGB CONC 32.9 g/dL (32.0-36.0); MEAN CORPUSCULAR VOLUME 83 fl (80-97); PLATELET COUNT 285 10^3/uL (150-450); RED BLOOD COUNT 3.86 10^6/uL (3.72-5.28); RED CELL DISTRIBUTION WIDTH 14.6 % (11.5-14.0); WHITE BLOOD COUNT 13.4 10^3/uL (4.0-10.5)
[2020-01-11 16:00] LABS: ALBUMIN 2.9 g/dL (3.5-5.0); ALKALINE PHOSPHATASE 202 U/L (38-126); ANION GAP 5 (5-19); ASPARTATE AMINO TRANSFERASE 42 U/L (14-36); BILIRUBIN,TOTAL 0.3 mg/dL (0.2-1.3); BLOOD UREA NITROGEN 2 mg/dL (7-20); CALCIUM 8.2 mg/dL (8.4-10.2); CARBON DIOXIDE 23 mmol/L (22-30); CHLORIDE 107 mmol/L (98-107); POTASSIUM 3.5 mmol/L (3.6-5.0); TOTAL PROTEIN 5.7 g/dL (6.3-8.2); URIC ACID 4.7 mg/dL (2.5-6.2)
[2020-01-11 16:04] LABS: GLUCOSE 59 mg/dL (75-110)
[2020-01-11 16:08] LABS: ABSOLUTE LYMPHOCYTES# (MANUAL) 4.4 10^3/uL (0.5-4.7); ABSOLUTE MONOCYTES # (MANUAL) 0.9 10^3/uL (0.1-1.4); BASOPHILS % (MANUAL) 0 % (0-2); EOSINOPHILS % (MANUAL) 0 % (0-6); LYMPHOCYTES % (MANUAL) 29 % (13-45); METAMYELOCYTES % (MANUAL) 1 % (0-1); MONOCYTES % (MANUAL) 7 % (3-13); NUCLEATED RED BLOOD CELLS 1 /100 WBC (0); SEGMENTED NEUTROPHILS % (MAN) 59 % (42-78); TOTAL CELLS COUNTED 100
[2020-01-11 16:10] LABS: ANISOCYTOSIS SLIGHT; PLATELET COMMENT ADEQUATE; POLYCHROMASIA SLIGHT; TOXIC GRANULATION SLIGHT
--- NOTE | 2020-01-11 16:57 | Non Stress Test Report ---
Non Stress Test Datetime Report Generated by CPN: 01/11/2020 16:57 DEMOGRAPHIC EGA NST: 35.3 VITAL SIGNS Temperature - NST: 98.4 Pulse - NST: 99 RESP - NST: 18 NBPSYS NST: 128 NBPDIA NST: 81 MONITORING Monitor Explained: Monitor Explained; Test Explained; Patient Verbalized Understanding Time on Monitor: 01/11/2020 15:00 Time off Monitor: 01/11/2020 16:30 NST Duration: 90 NST INTERVENTIONS NST Interventions: PO Hydration; Reposition Patient Physician Notified NST: A LUNA, CNM REVIEWED STRIP BABY A: [id number] BABY A Movement : Present Contraction Frequency : RARE FHR Baseline : 135 Accelerations : 15X15 Decelerations : None Variability : Moderate 6-25bpm NST Review: Meets Criteria for Reactive NST NST Review and Verified By : TARIQ CooperT Results: Reactive NST REPORT Report Trigger: Send Report
== END 2020-01-11 16:39 | disposition home or self-care (01) ==
LOC: LC 14:45
PROVIDERS: ATTEND Obstetrics & Gynecology
PROC: 4A1HXCZ Monitoring of Products of Conception, Cardiac Rate, External Approach (ICD-10-PCS; principal; 2020-01-11)
DX: O13.3 Gestational [pregnancy-induced] hypertension without significant proteinuria, third trimester (principal); Z3A.35 35 weeks gestation of pregnancy
CPT/HCPCS: 36415; 59025; 80053; 80307; 81001; 82570; 83615; 84156; 84550; 85025; 87086; 87088

== ENCOUNTER 2020-01-26 17:30 | Inpatient (IN) | payer OTHER ==
[2020-01-26] MEDS ORDERED: DINOPROSTONE 10 MG VAGINAL INSERT.SR PV PRN (18:49)
[2020-01-26] MEDS ORDERED: OXYTOCIN/NORMAL SALINE 20 UNIT/1,000 ML RTUINJ IV PRN (18:49)
[2020-01-26 19:12] LABS: ABSOLUTE LYMPHOCYTES (AUTO) 2.8 10^3/uL (0.5-4.7); ABSOLUTE MONOCYTES (AUTO) 0.7 10^3/uL (0.1-1.4); BASOPHILS % (AUTO) 0.3 % (0-2); EOSINOPHILS % (AUTO) 0.3 % (0-6); HEMATOCRIT 33.1 % (36.0-47.0); HEMOGLOBIN 11.1 g/dL (12.0-15.5); LYMPHOCYTES % (AUTO) 19.2 % (13-45); MEAN CORPUSCULAR HEMOGLOBIN 27.8 pg (27.0-33.4); MEAN CORPUSCULAR HGB CONC 33.5 g/dL (32.0-36.0); MEAN CORPUSCULAR VOLUME 83 fl (80-97); MONOCYTES % (AUTO) 4.7 % (3-13); PLATELET COUNT 380 10^3/uL (150-450); RED BLOOD COUNT 3.99 10^6/uL (3.72-5.28); RED CELL DISTRIBUTION WIDTH 16.2 % (11.5-14.0); SEGMENTED NEUTROPHILS % (AUTO) 75.5 % (42-78); TOTAL CELLS COUNTED % (AUTO) 100 %; WHITE BLOOD COUNT 14.6 10^3/uL (4.0-10.5)
[2020-01-26 19:20] LABS: APPEARANCE,URINE CLOUDY; BILIRUBIN,URINE NEGATIVE (NEGATIVE); COLOR,URINE YELLOW; GLUCOSE, URINE 50 mg/dL (NEGATIVE); KETONES,URINE 80 mg/dL (NEGATIVE); LEUKOCYTE ESTERASE,URINE LARGE (NEGATIVE); NITRITE,URINE NEGATIVE (NEGATIVE); PROTEIN,URINE 100 mg/dL (NEGATIVE); URINE SPECIFIC GRAVITY 1.025; UROBILINOGEN,URINE NEGATIVE mg/dL (<2.0)
[2020-01-26] MEDS ORDERED: DINOPROSTONE 10 MG VAGINAL INSERT.SR ONE (19:29)
[2020-01-26 19:37] LABS: URINE AMPHETAMINES SCREEN NEGATIVE; URINE BARBITURATES SCREEN NEGATIVE; URINE BENZODIAZEPINES SCREEN NEGATIVE; URINE COCAINE SCREEN NEGATIVE; URINE MARIJUANA (THC) SCREEN NEGATIVE; URINE METHADONE SCREEN NEGATIVE; URINE PHENCYCLIDINE SCREEN NEGATIVE
[2020-01-26] MEDS ORDERED: RINGERS SOLUTION,LACTATED 1,000 ML IV ONE (20:42)
[2020-01-26] MEDS ORDERED: RINGERS SOLUTION,LACTATED 1,000 ML IV PRN (20:42)
[2020-01-26] MEDS ORDERED: ZOLPIDEM TARTRATE 5 MG TABLET ONE (21:11)
[2020-01-27] MEDS ORDERED: LIDOCAINE 1% INJ-PF (10 MG/ML) 30 ML SDV ONE (03:51)
[2020-01-27] MEDS ORDERED: OXYTOCIN 10 UNIT/ML VIAL ONE (03:51)
[2020-01-27] MEDS ORDERED: OXYTOCIN/NORMAL SALINE 20 UNIT/1,000 ML RTUINJ ONE (03:51)
[2020-01-27] MEDS ORDERED: MISOPROSTOL 0.2 MG TABLET ONE (03:51)
--- NOTE | 2020-01-27 09:40 | Admission Physical ---
Datetime Report Generated by CPN: 01/27/2020 09:40 CURRENT ADMISSION Hx Assessment: The History has been Reviewed and is Current Chief Complaint: Scheduled Induction of Labor Indication for Induction: Gestational HTN; Other Indication for Induction- Other: GDM-A2 Admit Impression : Term, Intrauterine Admit Plan: Admit to Unit; Initiate Labor Induction Protocol ALLERGIES Medication Allergies: Yes Medication Allergies: Penicillins (01/26/2020) Latex: No Latex Allergies OBSTETRICAL HISTORY EDC: 02/12/2020 00:00 : 3 Para: 2 Term: 2 : 0 SAB: 0 IAB: 0 Livin Gestational Diabetes: Yes Rh Sensitization: No Incompetent Cervix: No ROM: No Infertility: No ART Treatment: Yes Uterine Anomaly: No IUGR: No Hx Previous C/S: No Macrosomia: No Hx Loss/Stillborn: No PIH: No Hx : No Placenta Previa/Abruption: No Depression/PP Depression: Yes PTL/PROM: No Post Hemorrhage: Yes Current Procedures: Ultrasound; NST SEE RECORDS Alcohol: No Marijuana : No Cocaine: No Other Illicit Drugs: No Cigarettes: Former Smoker. 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 Heart Disease: No Hosp/Surgery: Yes Autoimmune Disorder: No Anesthetic Complications: No Kidney Disease: No Abnormal Pap Smear: Yes Neuro/Epilepsy: No Psychiatric Disorders: Yes Other Medical Diseases: No Hepatitis/Liver Disease: No Varicosities/Phlebitis: No Trauma/Violence : Yes Thyroid Dysfunction: No INFECTIOUS HISTORY Gonorrhea: No Chlamydia: No Tuberculosis: No Syphilis: No Hepatitis: No HIV/AIDS Exposure: No HPV: Yes PHYSICAL EXAM General: Normal Heart: Normal Lungs: Normal Abdomen: Normal Extremities: Normal Pelvic Type: Adequate Physical Exam Comments: proven to 7lbs 10 oz Vital Signs: Reviewed Details Vital Signs: occasional mild range VAGINAL EXAM Contraction Comments: rare MEMBRANES Membranes: Intact FETUS A EGA: 37.5 Monitoring: External US FHR Category: Category I Presentation: Vertex Admit Comment: 29yo GBS neg, O pos, RI. Admitted into unit last night for IOL secondary to GHTN and GDM-A2. Pt had cervidil overnight and ready for pitocin this AM. Hx is significant for molar in 2016 with D_C, GHTN with second and GDM-A2 (glyburide and insulin respectively with G2,G3 and now glyburide for G4). Hgb a1c 5.2 @ 33wga. 24hr urine less than 300mg on 12/24 and 3/19. PLan is to continue IOL with pitocin at this time. 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 PLANS FOR LABOR AND DELIVERY Labor and Delivery: None Pain Management: Epidural Feeding Preference: Formula Benefit of Breast Feed Discussed: Yes Circumcision: N/A INFORMED CONSENT Assignment: Iraida Olmos MD Signature: with User ID: Ryan : with User ID: Ryan
[2020-01-27 09:53] LABS: ABSOLUTE BASOPHILS # (AUTO) 0.1 10^3/uL (0.0-0.2); ABSOLUTE EOSINOPHILS # (AUTO) 0.1 10^3/uL (0.0-0.6); ABSOLUTE LYMPHOCYTES (AUTO) 3.2 10^3/uL (0.5-4.7); ABSOLUTE MONOCYTES (AUTO) 0.6 10^3/uL (0.1-1.4); ABSOLUTE NEUT (AUTO) 10.8 10^3/uL (1.7-8.2); BASOPHILS % (AUTO) 0.4 % (0-2); EOSINOPHILS % (AUTO) 0.6 % (0-6); HEMOGLOBIN 11.1 g/dL (12.0-15.5); LYMPHOCYTES % (AUTO) 21.5 % (13-45); MEAN CORPUSCULAR HEMOGLOBIN 26.9 pg (27.0-33.4); MEAN CORPUSCULAR HGB CONC 32.7 g/dL (32.0-36.0); MEAN CORPUSCULAR VOLUME 82 fl (80-97); MONOCYTES % (AUTO) 4.2 % (3-13); PLATELET COUNT 374 10^3/uL (150-450); RED BLOOD COUNT 4.13 10^6/uL (3.72-5.28); RED CELL DISTRIBUTION WIDTH 16.1 % (11.5-14.0); SEGMENTED NEUTROPHILS % (AUTO) 73.3 % (42-78); TOTAL CELLS COUNTED % (AUTO) 100 %; WHITE BLOOD COUNT 14.7 10^3/uL (4.0-10.5)
[2020-01-27 10:18] LABS: ALBUMIN 3.4 g/dL (3.5-5.0); ALKALINE PHOSPHATASE 274 U/L (38-126); ANION GAP 9 (5-19); ASPARTATE AMINO TRANSFERASE 28 U/L (14-36); BILIRUBIN,DIRECT 0.2 mg/dL (0.0-0.4); BILIRUBIN,TOTAL 0.6 mg/dL (0.2-1.3); BLOOD UREA NITROGEN 2 mg/dL (7-20); CALCIUM 9.2 mg/dL (8.4-10.2); CARBON DIOXIDE 16 mmol/L (22-30); CHLORIDE 109 mmol/L (98-107); GLUCOSE 152 mg/dL (75-110); TOTAL PROTEIN 6.7 g/dL (6.3-8.2); URIC ACID 4.3 mg/dL (2.5-6.2)
[2020-01-27] MEDS ORDERED: PHENYLEPHRINE HCL INJ/PF 10 MG/1 ML SDV ONE (10:47)
[2020-01-27] MEDS ORDERED: EPHEDRINE SULFATE INJ 50 MG/1 ML AMPULE ONE (10:48)
[2020-01-27] MEDS ORDERED: FENTANYL CITRATE INJ/PF 100 MCG/2 ML AMPUL ONE (10:48)
[2020-01-27] MEDS ORDERED: FENTANYL/BUPIVACAINE/NS/PF 300 MCG/150 ML RTUINJ EPI ONE (10:48)
[2020-01-27] MEDS ORDERED: BUPIVACAINE HCL 0.25 % INJ/PF (2.5 MG/1 ML) 30 ML VIAL ONE (10:48)
[2020-01-27] MEDS ORDERED: LIDOCAINE 2% INJ-PF (20 MG/ML) 10 ML AMPUL ONE (13:58)
[2020-01-27] MEDS ORDERED: DIBUCAINE 1% OINTMENT 28 GM TP PRN (15:54)
[2020-01-27] MEDS ORDERED: OXYTOCIN/NORMAL SALINE 20 UNIT/1,000 ML RTUINJ IV PRN (15:54)
[2020-01-27] MEDS ORDERED: BENZOCAINE/MENTHOL AEROSOL SPRAY 56 ML TOP PRN (15:54)
[2020-01-27] MEDS ORDERED: PSEUDOEPHEDRINE HCL 30 MG TABLET PO PRN (15:54)
[2020-01-27] MEDS ORDERED: PROMETHAZINE HCL 25 MG TABLET PO PRN (15:54)
[2020-01-27] MEDS ORDERED: MEASLES,MUMPS&RUBELLA VACC/PF 0.5 ML VIAL SUBCUT PRN (15:54)
[2020-01-27] MEDS ORDERED: GLYCERIN/WITCH HAZEL LEAF 1 EACH MED..WIPE TP PRN (15:54)
[2020-01-27] MEDS ORDERED: PROMETHAZINE HCL INJ 25 MG/1 ML VIAL IV PRN (15:54)
[2020-01-27] MEDS ORDERED: DIPH/PERTUSS(ACELL)/TETANUS VAC/PF 0.5 ML SYR (>=10YO) IM PRN (15:54)
[2020-01-27] MEDS ORDERED: ACETAMINOPHEN WITH CODEINE #3 TABLET PO PRN ×2 (15:54)
[2020-01-27] MEDS ORDERED: NA PHOS,M-B/NA PHOS,DI-BA (ADULT) 133 ML ENEMA PR PRN (15:54)
[2020-01-27] MEDS ORDERED: DIPHENHYDRAMINE HCL 25 MG CAPSULE PO PRN (15:54)
[2020-01-27] MEDS ORDERED: PROMETHAZINE HCL 25 MG SUPP.RECT PR PRN (15:54)
[2020-01-27] MEDS ORDERED: ACETAMINOPHEN 325 MG TABLET PO PRN (15:54)
[2020-01-27] MEDS ORDERED: MAGNESIUM HYDROXIDE SUSP 30 ML UDCUP PO PRN (15:54)
--- NOTE | 2020-01-27 16:00 | Warning Signs in Babies ---
VOD Warning Signs Datetime Report Generated by [facility]: 01/27/2020 16:00 VOD#608 -Warning Signs in Babies: Viewed with Parent(s)/Family (12/22/2019 15:25:Cristela Adame RN)
--- NOTE | 2020-01-27 16:57 | Delivery Summary ---
Del Sum A-C Datetime Report Generated by CPN: 01/27/2020 16:56 DELIVERY PERSONNEL DELIVERY PERSONNEL: [id number] Nurse Dental Assistant Certified:: Carolin Jones CNM Labor and Delivery Nurse:: Cristela Adame RNfire prevention research engineer Nurse:: Silvia Mai RN Nursery Nurse:: steve Baird RN Slicing Machine Feeder/INTERVENTIONAL PHYSIATRIST: Jhoanny Ortega AUTOMOTIVE MANUFACTURER Slicing Machine Feeder/INTERVENTIONAL PHYSIATRIST: Juliana Rosalina, AUTOMOTIVE MANUFACTURER MATERNAL INFORMATION Delivery Anesthesia: Epidural Medications After Delivery: Pitocin Bolus-Please Comment; Cytotec 1000mcg Per Rectum/Vagina Meds After Delivery Comment: Pitocin 20units/1000ml NSS Delivery QBL: 393 Maternal Complications: None Provider Comments: pt involuntarily pushing, called into room pt was c/c/3 continued pushing through contraction, was able to put my gloves on and pt quickly delivered a viable baby girl with vigorous respiratory effort and cry spontaneously at . Baby placed skin to skin on maternal abdomen. Cord allowed to stop pulsating then clamped x2 and cut by FOB, cord blood collected. Placenta delivered spontaneously intact, Small cord with what appears to be a velamentous insertion (3vc noted). Placenta to lab for eval also with hx of molar . Fundus firm at U-2 with moderate bleeding. Vaginal and perineal inspection revealed no lacerations. Mother and baby stable, remain skin to skin and bonding at this time LABOR SUMMARY EDC: 02/12/2020 00:00 No. Babies in Womb: 1 Attempted: No Labor Anesthesia: Epidural LABOR INFORMATION Reason for Induction: Gestational Hypertension; Other Reason for Induction- Other: GDM Onset of Labor: 01/27/2020 09:16 Cervical Ripening Agents: Cervidil Oxytocin: Induction Group B Beta Strep: Negative Antibiotics # of Doses: 0 Antibiotics Time of Last Dose: N/A Name of Antibiotic Given: N/A Steroids Given: None Reason Steroids Not Administered: Not Applicable MEMBRANES Membranes Rupture Method: Artificial Rupture of Membranes: 01/27/2020 13:25 Length of Rupture (hr): 1.72 Amniotic Fluid Color: Clear Amniotic Fluid Amount: Moderate Amniotic Fluid Odor: Normal STAGES OF LABOR Stage 3 hr: 0 Stage 3 min: 7 Total Time in Labor hr: 5 Total Time in Labor min: 59 VAGINAL DELIVERY Episiotomy: None Laceration #1: None Laceration Extension #1: N/A Laceration Repair: Not Applicable Laceration Repair Note: n/a Sponge Count Correct: N/A Sharps Count Correct: N/A CSECTION DELIVERY Primary Indication: N/A Secondary Indication: N/A CSection Incidence: N/A Labor: N/A Elective: N/A CSection Incision: N/A BABY A INFORMATION Delivery Date/Time: 01/27/2020 15:08 Method of Delivery: Vaginal Nurse Controlled Delivery: No Born in Route : No : N/A Forceps: N/A Vacuum Extraction: N/A Shoulder Dystocia : No PRESENTATION/POSITION BABY A Presentation: Cephalic Cephalic Presentation: Vertex Vertex Position: Right Occipital Anterior Breech Presentation: N/A PLACENTA INFORMATION BABY A Placenta Delivery Time : 01/27/2020 15:15 Placenta Method of Delivery: Spontaneous Placenta Status: Delivered SCORES BABY A Heart Rate 1 min: >100 bpm Resp Effort 1 min: Good Cry Reflex Irritability 1 min: Cough or Sneeze or Pulls Away Muscle Tone 1 min: Active Motion Color 1 min: Blue/Pale Resuscitation Effort 1 min: Tactile Stimulation SCORE 1 MIN: 8 Heart Rate 5 min: >100 bpm Resp Effort 5 min: Good Cry Reflex Irritability 5 min: Cough or Sneeze or Pulls Away Muscle Tone 5 min: Active Motion Color 5 min: Body [place], Extremities Blue Resuscitation Effort 5 min: Tactile Stimulation SCORE 5 MIN: 9 INFANT INFORMATION BABY A Gestational Age at Delivery: 37.5 Gestational Status: Early Term- 37- 38.6 Weeks Infant Outcome : Liveborn Infant Condition : Stable Infant Sex: Female IDENTIFICATION BABY A Verification Date/Time: 01/27/2020 15:42 ID Band Number: [id number] Mother's Name Verified: Yes Infant RN Verifying Infant: JNiebuhr,RN Additional Verifying Personnel: KPorlinden, WEIGHT/LENGTH BABY A Infant Birthweight (gm): 2852 Weight (lb): 6 Weight (oz): 5 Length (in): 18.00 Infant Length (cm): 45.72 CORD INFORMATION BABY A No. Cord Vessels: 3 Nuchal Cord : N/A Cord Blood Taken: Yes-For Eval (Mom's Blood Type - or O+) Infant Suction: Mouth ASSESSMENT BABY A Infant Complications: None Physical Findings at Delivery: Within Normal Limits Respirations: Appears Normal Skin to Skin: Yes Skin to Skin Time (min): 60 Mirror Maker/ALS Called : No Infant Care By: JNiebuTARIQ reid Transferred To: Remains with Mother BABY B INFORMATION : 0 SIGNATURES Assignment: Iraida Olmos MD Signature: with User ID: Ryan : with User ID: Ryan
[2020-01-27] MEDS ORDERED: IBUPROFEN 800 MG TABLET ONE (17:39)
[2020-01-27] MEDS: IBUPROFEN 800 MG TABLET PO SCH (18:02)
[2020-01-27] MEDS: DOCUSATE SODIUM 100 MG CAPSULE PO SCH (20:17)
[2020-01-27] MEDS: FERROUS SULFATE 325 MG TABLET PO SCH (20:17)
[2020-01-27] MEDS: FAMOTIDINE 20 MG TABLET PO SCH (21:11)
[2020-01-28] MEDS: IBUPROFEN 800 MG TABLET PO SCH ×4 (00:33→21:07)
[2020-01-28 06:52] LABS: MEAN CORPUSCULAR HEMOGLOBIN 27.6 pg (27.0-33.4); MEAN CORPUSCULAR HGB CONC 33.5 g/dL (32.0-36.0); MEAN CORPUSCULAR VOLUME 83 fl (80-97); PLATELET COUNT 324 10^3/uL (150-450); RED BLOOD COUNT 3.22 10^6/uL (3.72-5.28); RED CELL DISTRIBUTION WIDTH 16.2 % (11.5-14.0)
[2020-01-28 06:53] LABS: HEMATOCRIT 26.3 % (36.0-47.0); HEMOGLOBIN 8.9 g/dL (12.0-15.5)
[2020-01-28] MEDS: FAMOTIDINE 20 MG TABLET PO SCH ×2 (09:37→21:07)
[2020-01-28] MEDS: FERROUS SULFATE 325 MG TABLET PO SCH ×2 (09:37→17:41)
[2020-01-28] MEDS: PRENATAL VITAMIN W DHA CAPSULE PO SCH (09:37)
[2020-01-28] MEDS: DOCUSATE SODIUM 100 MG CAPSULE PO SCH ×2 (09:38→17:40)
[2020-01-28] MEDS: SENNOSIDES/DOCUSATE 8.6-50 MG 1 EACH TABLET PO SCH (09:38)
[2020-01-28] MEDS: LABETALOL HCL 200 MG TABLET PO SCH ×2 (09:43→17:40)
--- NOTE | 2020-01-28 10:01 | PDOC PROGRESS REPORT ---
Subjective-OB Progress Note for:: 01/28/20 - PP Day #1, doing well, denies headache, Hx GDM, GHTN this , O+, rubella immune, bottle feeding Physical Exam (OB) Vital Signs: Temp Pulse Resp BP Pulse Ox 97.4 F 102 H 16 127/96 H 99 01/28/20 07:32 01/28/20 07:32 01/28/20 07:32 01/28/20 07:32 01/28/20 07:32 Intake & Output 01/27/20 01/28/20 01/29/20 06:59 06:59 06:59 Intake Total 300 Balance 300 Weight 93.8 kg - General General Appearance: Appears well, Alert In distress: None - PIH/Pre-Eclampsia DTR's: 1 + Clonus: Negative Headache: Absent Epigastric Pain: No Visual Changes: No - Lochia Lochia Amount: Small 10-25 ml Lochia Color: Rubra/Red - Abdomen Description: Soft Hernia Present: No Fundal Description: Firm, Midline Fundal Height: u/u - u/2 - Respiratory Respiratory Status: No respiratory distress - Abdominal Distension: No distension Tenderness: Nontender - Genitourinary Genitourinary Note: voiding - Extremities Upper extremity: Normal inspection Lower extremities: Edema - Neurological Orientation: AAOx4 - Psychological Associated symptoms: Normal affect, Normal mood Objective-Diagnostic Laboratory: 01/28/20 06:40 01/27/20 09:30 01/27/20 01/28/20 09:30 06:40 WBC 19.0 H RBC 3.22 L Hgb 8.9 L D Hct 26.3 L MCV 83 MCH 27.6 MCHC 33.5 RDW 16.2 H Plt Count 324 Sodium 134.1 L Potassium 4.0 Chloride 109 H Carbon Dioxide 16 L Anion Gap 9 BUN 2 L Creatinine 0.48 L Est GFR ( Amer) > 60 Glucose 152 H Uric Acid 4.3 Calcium 9.2 Total Bilirubin 0.6 AST 28 Alkaline Phosphatase 274 H Total Protein 6.7 Albumin 3.4 L Assessment and Plan(PN) - Assessment and Plan (1) Gestational diabetes mellitus (GDM) Qualifiers: Gestational diabetes mellitus control: diet-controlled Is this a current diagnosis for this admission?: Yes (2) Gestational hypertension Qualifiers: Trimester: third trimester Qualified Code(s): O13.3 - Gestational [-induced] hypertension without significant proteinuria, third trimester Is this a current diagnosis for this admission?: Yes (3) Acute blood loss anemia Is this a current diagnosis for this admission?: Yes (4) History of molar in first trimester, antepartum Is this a current diagnosis for this admission?: Yes (5) Vaginal delivery Is this a current diagnosis for this admission?: Yes Plan:: Starting on PO labetalol, BP precautions, Routine PP orders - Time Spent with Patient Time with patient: Less than 15 minutes Medications reviewed and adjusted accordingly: Yes - Disposition Anticipated Discharge: Home Within: within 24 hours
[2020-01-29] MEDS: IBUPROFEN 800 MG TABLET PO SCH ×2 (05:35→13:30)
--- NOTE | 2020-01-29 08:55 | PDOC PROGRESS REPORT ---
Subjective-OB Progress Note for:: 01/29/20 Subjective: Doing well, no c/o, hsb at BS, has good support at home, scant lochia, can take BP at home Physical Exam (OB) Vital Signs: Temp Pulse Resp BP Pulse Ox 97.4 F 93 16 136/84 H 100 01/29/20 07:31 01/29/20 07:31 01/29/20 07:31 01/29/20 07:31 01/29/20 07:31 Intake & Output 01/28/20 01/29/20 01/30/20 06:59 06:59 06:59 Intake Total 780 Balance 780 - PIH/Pre-Eclampsia DTR's: 1 + Clonus: Negative Headache: Absent Epigastric Pain: No Visual Changes: No - Lochia Lochia Amount: Small 10-25 ml Lochia Color: Rubra/Red - Abdomen Description: Soft Hernia Present: No Fundal Description: Firm, Midline Fundal Height: u/u - u/2 Objective-Diagnostic Laboratory: 01/28/20 06:40 01/27/20 09:30 Assessment and Plan(PN) - Assessment and Plan (1) Gestational diabetes mellitus (GDM) Qualifiers: Gestational diabetes mellitus control: diet-controlled Is this a current diagnosis for this admission?: Yes (2) Gestational hypertension Qualifiers: Trimester: third trimester Qualified Code(s): O13.3 - Gestational [-induced] hypertension without significant proteinuria, third trimester Is this a current diagnosis for this admission?: Yes (3) Acute blood loss anemia Is this a current diagnosis for this admission?: Yes (4) History of molar in first trimester, antepartum Is this a current diagnosis for this admission?: Yes (5) Vaginal delivery Is this a current diagnosis for this admission?: Yes - Time Spent with Patient Time with patient: Less than 15 minutes Medications reviewed and adjusted accordingly: Yes - Disposition Anticipated Discharge: Home Within: within 24 hours
--- NOTE | 2020-01-29 09:01 | PDOC DISCHARGE SUMMARY ---
Impression - Admit/DC Date/PCP Admission Date/Primary Care Provider: 01/26/20 17:30 Discharge Date: 01/29/20 - Discharge Diagnosis (1) Gestational diabetes mellitus (GDM) Is this a current diagnosis for this admission?: Yes (2) Gestational hypertension Is this a current diagnosis for this admission?: Yes (3) Acute blood loss anemia Is this a current diagnosis for this admission?: Yes (4) History of molar in first trimester, antepartum Is this a current diagnosis for this admission?: Yes (5) Vaginal delivery Is this a current diagnosis for this admission?: Yes - Additional Information Discharge Diet: As Tolerated, Regular Discharge Activity: Activity As Tolerated, Pelvic Rest Referrals: A[facility] BOW[facility] MD [ACTIVE STAFF] - (rtc 2-3 weeks, take bp at home) Prescriptions: Labetalol HCl [Normodyne 200 mg Tablet] 100 mg PO BID #60 tablet Home Medications: Prenat 115/Iron Fum/Folic/Dss [ 19 Tablet] 1 tab PO DAILY 04/11/17 Aripiprazole [Abilify 2 mg Tablet] 2 mg PO DAILY 12/22/19 Hydroxyzine Pamoate [Vistaril 25 mg Capsule] 25 mg PO DAILY PRN 12/22/19 Citalopram Hydrobromide [Celexa] 10 mg PO DAILY 01/26/20 Labetalol HCl [Normodyne 200 mg Tablet] 100 mg PO BID #60 tablet 01/29/20 HPI Gestational Age: 37.5 Reason(s) for Admission: Induction of Labor, PIH, Gestional Diabetes Procedures: NST, Ultrasound, Management of Obstetric Complications - girl, 6-5, apgars 8/9 Intrapartum Procedure(s): Spontaneous Vaginal Delivery Hospital Course Hospital Course: routine, no complications Results Laboratory Results: WBC 19.0 10^3/uL (4.0-10.5) H 01/28/20 06:40 RBC 3.22 10^6/uL (3.72-5.28) L 01/28/20 06:40 Hgb 8.9 g/dL (12.0-15.5) L D 01/28/20 06:40 Hct 26.3 % (36.0-47.0) L 01/28/20 06:40 MCV 83 fl (80-97) 01/28/20 06:40 MCH 27.6 pg (27.0-33.4) 01/28/20 06:40 MCHC 33.5 g/dL (32.0-36.0) 01/28/20 06:40 RDW 16.2 % (11.5-14.0) H 01/28/20 06:40 Plt Count 324 10^3/uL (150-450) 01/28/20 06:40 Lymph % (Auto) 21.5 % (13-45) 01/27/20 09:30 [place] % (Auto) 4.2 % (3-13) 01/27/20 09:30 Eos % (Auto) 0.6 % (0-6) 01/27/20 09:30 Baso % (Auto) 0.4 % (0-2) 01/27/20 09:30 Absolute Neuts (auto) 10.8 10^3/uL (1.7-8.2) H 01/27/20 09:30 Absolute Lymphs (auto) 3.2 10^3/uL (0.5-4.7) 01/27/20 09:30 Absolute Monos (auto) 0.6 10^3/uL (0.1-1.4) 01/27/20 09:30 Absolute Eos (auto) 0.1 10^3/uL (0.0-0.6) 01/27/20 09:30 Absolute Basos (auto) 0.1 10^3/uL (0.0-0.2) 01/27/20 09:30 Seg Neutrophils % 73.3 % (42-78) 01/27/20 09:30 Sodium 134.1 mmol/L (137-145) L 01/27/20 09:30 Potassium 4.0 mmol/L (3.6-5.0) 01/27/20 09:30 Chloride 109 mmol/L (98-107) H 01/27/20 09:30 Carbon Dioxide 16 mmol/L (22-30) L 01/27/20 09:30 Anion Gap 9 (5-19) 01/27/20 09:30 BUN 2 mg/dL (7-20) L 01/27/20 09:30 Creatinine 0.48 mg/dL (0.52-1.25) L 01/27/20 09:30 Est GFR ( Amer) > 60 (>60) 01/27/20 09:30 Est GFR (MDRD) Non-Af > 60 (>60) 01/27/20 09:30 Glucose 152 mg/dL (75-110) H 01/27/20 09:30 POC Glucose 94 mg/dL (70-110) 01/27/20 14:22 Uric Acid 4.3 mg/dL (2.5-6.2) 01/27/20 09:30 Calcium 9.2 mg/dL (8.4-10.2) 01/27/20 09:30 Total Bilirubin 0.6 mg/dL (0.2-1.3) 01/27/20 09:30 Direct Bilirubin 0.2 mg/dL (0.0-0.4) 01/27/20 09:30 Neonat Total Bilirubin Not Reportable 01/27/20 09:30 Neonat Direct Bilirubin Not Reportable 01/27/20 09:30 Neonat Indirect Bili Not Reportable 01/27/20 09:30 AST 28 U/L (14-36) 01/27/20 09:30 ALT 16 U/L (<35) 01/27/20 09:30 Alkaline Phosphatase 274 U/L (38-126) H 01/27/20 09:30 Lactate Dehydrogenase 194 U/L (120-246) 01/27/20 09:30 Total Protein 6.7 g/dL (6.3-8.2) 01/27/20 09:30 Albumin 3.4 g/dL (3.5-5.0) L 01/27/20 09:30 Urine Color YELLOW 01/26/20 17:44 Urine Appearance CLOUDY 01/26/20 17:44 Urine pH 6.0 (5.0-9.0) 01/26/20 17:44 Ur Specific [place] 1.025 01/26/20 17:44 Urine Protein 100 mg/dL (NEGATIVE) H 01/26/20 17:44 Urine Glucose (UA) 50 mg/dL (NEGATIVE) H 01/26/20 17:44 Urine Ketones 80 mg/dL (NEGATIVE) H 01/26/20 17:44 Urine Blood NEGATIVE (NEGATIVE) 01/26/20 17:44 Urine Nitrite NEGATIVE (NEGATIVE) 01/26/20 17:44 Urine Bilirubin NEGATIVE (NEGATIVE) 01/26/20 17:44 Urine Urobilinogen NEGATIVE mg/dL (<2.0) 01/26/20 17:44 Ur Leukocyte Esterase LARGE (NEGATIVE) H 01/26/20 17:44 Urine Ascorbic Acid NEGATIVE (NEGATIVE) 01/26/20 17:44 Urine Opiates Screen NEGATIVE 01/26/20 17:44 Urine Methadone Screen NEGATIVE 01/26/20 17:44 Ur Barbiturates Screen NEGATIVE 01/26/20 17:44 Ur Phencyclidine Scrn NEGATIVE 01/26/20 17:44 Ur Amphetamines Screen NEGATIVE 01/26/20 17:44 U Benzodiazepines Scrn NEGATIVE 01/26/20 17:44 Urine Cocaine Screen NEGATIVE 01/26/20 17:44 U Marijuana (THC) Screen NEGATIVE 01/26/20 17:44 RPR NONREACTIVE (NONREACTIVE) 01/26/20 19:02 Blood Type O POSITIVE 01/26/20 19:02 Antibody Screen NEGATIVE 01/26/20 19:02 Plan Health Concerns: BP Plan of Treatment: continue labetelol, rev S&S to report, take BP at home Goals: no complications Time Spent: Less than 30 Minutes
[2020-01-29] MEDS: FERROUS SULFATE 325 MG TABLET PO SCH (09:20)
[2020-01-29] MEDS: PRENATAL VITAMIN W DHA CAPSULE PO SCH (09:20)
[2020-01-29] MEDS: SENNOSIDES/DOCUSATE 8.6-50 MG 1 EACH TABLET PO SCH (09:20)
[2020-01-29] MEDS: DOCUSATE SODIUM 100 MG CAPSULE PO SCH (09:21)
[2020-01-29] MEDS: LABETALOL HCL 200 MG TABLET PO SCH (09:21)
[2020-01-29] MEDS: FAMOTIDINE 20 MG TABLET PO SCH (09:21)
[2020-01-29 09:48] LABS: HEMATOCRIT 27.2 % (36.0-47.0); MEAN CORPUSCULAR HEMOGLOBIN 27.6 pg (27.0-33.4); MEAN CORPUSCULAR HGB CONC 33.2 g/dL (32.0-36.0); MEAN CORPUSCULAR VOLUME 83 fl (80-97); PLATELET COUNT 365 10^3/uL (150-450); RED BLOOD COUNT 3.28 10^6/uL (3.72-5.28); RED CELL DISTRIBUTION WIDTH 16.5 % (11.5-14.0); WHITE BLOOD COUNT 14.8 10^3/uL (4.0-10.5)
[2020-01-29 12:16] VITALS: BP 135/98
== END 2020-01-29 13:47 | disposition home or self-care (01) | DRG 807 ==
LOC: LR 17:30 → 2S 01-27 17:57
PROVIDERS: ADMIT Obstetrics & Gynecology; ATTEND Obstetrics & Gynecology
PROC: 10E0XZZ Delivery of Products of Conception, External Approach (ICD-10-PCS; principal; 2020-01-27)
PROC: 3E0234Z Introduction of Serum, Toxoid and Vaccine into Muscle, Percutaneous Approach (ICD-10-PCS; 2020-01-29)
DX: O13.4 Gestational [pregnancy-induced] hypertension without significant proteinuria, complicating childbirth (principal); Z37.0 Single live birth; O24.425 Gestational diabetes mellitus in childbirth, controlled by oral hypoglycemic drugs; O43.123 Velamentous insertion of umbilical cord, third trimester; Z3A.37 37 weeks gestation of pregnancy; Z23 Encounter for immunization
CPT/HCPCS: 36415; 80053; 80307; 81005; 82962; 83615; 84550; 85025; 85027; 86592; 86850; 86900; 86901; 88307; 90715; 94760; J2370; J2590; J3010; J3490